=== PATIENT | male | born 1955 | race Caucasian/White ===

== ENCOUNTER 2023-02-09 21:30 | Inpatient (IN) | payer MEDICARE ==
[~2023-02-09] VITALS: Ht 177.8 cm; Wt 63.5 kg
[2023-02-09 21:39] VITALS: BP 105/73; TEMP 98.1; O2SAT 98
[2023-02-09] MEDS ORDERED: TRAMADOL HCL 50 MG TABLET PO PRN (21:45)
[2023-02-09] MEDS: ACETAMINOPHEN 325 MG TABLET PO PRN (22:32)
[2023-02-09] MEDS ORDERED: NICO-625 TD (22:57)
[2023-02-09] MEDS ORDERED: MAGN400O6 PO (22:57)
[2023-02-09] MEDS ORDERED: ALBU2.5V38 NEB (22:57)
[2023-02-09] MEDS ORDERED: FLUT1DIS28 INH (22:57)
[2023-02-09] MEDS ORDERED: ALBU8HFA4 (22:57)
[2023-02-09] MEDS ORDERED: PRED20TA PO (22:57)
[2023-02-09] MEDS ORDERED: ACET325C7 PO (22:57)
[2023-02-09] MEDS ORDERED: ENOX40DI SQ (22:57)
[2023-02-09] MEDS ORDERED: PANT40TA49 PO (22:57)
[2023-02-09] MEDS ORDERED: ONDA4TAB11 IVP (22:57)
[2023-02-09] MEDS ORDERED: LEVO500T90 PO (22:57)
[2023-02-09] MEDS ORDERED: MONT10TA22 PO (22:57)
[2023-02-09] MEDS ORDERED: DEXTROSE 50% 50 ML DISP.SYRIN IV PRN ×2 (23:00→23:30)
[2023-02-09] MEDS ORDERED: INSULIN REGULAR, HUMAN 300 UNIT/3 ML VIAL SQ PRN (23:00)
[2023-02-09] MEDS ORDERED: INSULIN REGULAR, HUMAN 300 UNITS/3 ML VIAL SQ PRN (23:00)
[2023-02-09] MEDS ORDERED: BLOOD SUGAR DIAGNOSTIC 1 EACH STRIP VI SCH (23:00)
[2023-02-09] MEDS ORDERED: IPRA0.2S48 NEB (23:04)
[2023-02-09] MEDS: BLOOD SUGAR DIAGNOSTIC 1 EACH STRIP VI SCH (23:30)
[2023-02-09] MEDS ORDERED: ALBUTEROL SULFATE 2.5 MG/3 ML NEBU NEB PRN (23:30)
[2023-02-10] VITALS (8 sets, daily range): BP systolic 106–121; BP diastolic 67–77; TEMP 97.7–98.3; O2SAT 93–99
[2023-02-10] MEDS: IPRATROPIUM BROMIDE 0.5 MG/2.5 ML NEBU NEB SCH ×2 (01:22→07:55)
[2023-02-10] MEDS ORDERED: ALBUTEROL SULFATE 2.5 MG/3 ML NEBU NEB PRN (06:00)
[2023-02-10] MEDS: BLOOD SUGAR DIAGNOSTIC 1 EACH STRIP VI SCH ×4 (06:08→21:29)
[2023-02-10] MEDS: NICOTINE 14 MG/24HR PATCH TD SCH (08:51)
[2023-02-10] MEDS: MONTELUKAST SODIUM 10 MG TABLET PO SCH (08:51)
[2023-02-10] MEDS: levoFLOXacin 500 MG TABLET PO SCH (08:51)
[2023-02-10] MEDS: FLUTICASONE/VILANTEROL 1 EACH BLST.W.DEV INH SCH (08:51)
[2023-02-10] MEDS: ENOXAPARIN SODIUM 40 MG/0.4 ML DISP.SYRIN SQ SCH (08:52)
[2023-02-10] MEDS ORDERED: LISI-782 PO (09:00)
[2023-02-10] MEDS ORDERED: SIMV-46 PO (09:00)
[2023-02-10] MEDS ORDERED: TAMS-3 PO (09:00)
[2023-02-10] MEDS ORDERED: METF-442 PO (09:00)
[2023-02-10] MEDS ORDERED: predniSONE 20 MG TABLET PO SCH (09:00)
[2023-02-10 09:50] LABS: BASOPHILS % (AUTO) 0.2 % (0.0-2.0); EOSINOPHILS # (AUTO) 0.1 K/uL (0.0-0.7); EOSINOPHILS % (AUTO) 0.8 % (0.0-7.0); HEMATOCRIT 46.1 % (36.7-47.1); HEMOGLOBIN 14.7 g/dL (12.5-16.3); LYMPHOCYTES # (AUTO) 1.4 K/uL (0.8-4.8); LYMPHOCYTES % (AUTO) 9.1 % (20.5-51.5); MEAN CORPUSCULAR HEMOGLOBIN 24.4 uug (23.8-33.4); MEAN CORPUSCULAR HGB CONC 32 g/dL (32.5-36.3); MEAN CORPUSCULAR VOLUME 76.7 fL (73.0-96.2); MONOCYTES # (AUTO) 1.6 K/uL (0.1-1.30); MONOCYTES % (AUTO) 10.3 % (0.0-11.0); NEUTROPHILS # (AUTO) 12.6 K/uL (1.8-8.9); NEUTROPHILS % (AUTO) 79.6 % (38.5-71.5); PLATELET COUNT (AUTO) 335 K/uL (152-348); RED BLOOD CELL COUNT(AUTO) 6.01 MIL/uL (4.06-5.63); RED CELL DISTRIBUTION WIDTH 18.3 % (12.1-16.2); WHITE BLOOD COUNT (AUTO) 15.8 K/uL (3.6-10.2)
[2023-02-10 09:55] LABS: DIFFERENTIAL COMMENT 1
[2023-02-10 10:09] LABS: ALBUMIN 3.3 g/dL (3.4-5.0); BILIRUBIN,TOTAL 0.5 mg/dL (0.2-1.0); CALCIUM 9.8 mg/dL (8.5-10.1); CREATININE 0.8 mg/dL (0.6-1.3); POTASSIUM 3.5 mmol/L (3.5-5.1); TOTAL PROTEIN, SERUM 7.5 g/dL (6.4-8.2)
[2023-02-10] MEDS ORDERED: IPRATROPIUM BROMIDE 0.5 MG/2.5 ML NEBU NEB PRN (11:01)
[2023-02-10] MEDS: predniSONE 20 MG TABLET PO SCH (12:18)
[2023-02-10] MEDS: INSULIN REGULAR, HUMAN 300 UNIT/3 ML VIAL SQ PRN (21:32)
[2023-02-11] VITALS (7 sets, daily range): BP systolic 100–132; BP diastolic 63–76; TEMP 97.6–98.5; O2SAT 96–100
[2023-02-11] MEDS: BLOOD SUGAR DIAGNOSTIC 1 EACH STRIP VI SCH ×4 (07:21→21:00)
[2023-02-11] MEDS: predniSONE 20 MG TABLET PO SCH (08:37)
[2023-02-11] MEDS: levoFLOXacin 500 MG TABLET PO SCH (08:39)
[2023-02-11] MEDS: NICOTINE 14 MG/24HR PATCH TD SCH (08:41)
[2023-02-11] MEDS: MONTELUKAST SODIUM 10 MG TABLET PO SCH (08:41)
[2023-02-11] MEDS: FLUTICASONE/VILANTEROL 1 EACH BLST.W.DEV INH SCH (08:42)
[2023-02-11] MEDS: ENOXAPARIN SODIUM 40 MG/0.4 ML DISP.SYRIN SQ SCH (08:43)
[2023-02-11] MEDS: INSULIN REGULAR, HUMAN 300 UNIT/3 ML VIAL SQ PRN (16:33)
[2023-02-12 05:14] VITALS: BP 113/72; TEMP 97.8; O2SAT 99
[2023-02-12 05:27] VITALS: O2SAT 98
[2023-02-12] MEDS: BLOOD SUGAR DIAGNOSTIC 1 EACH STRIP VI SCH ×4 (07:06→21:37)
[2023-02-12 07:47] VITALS: BP 125/74; TEMP 98.2; O2SAT 93
[2023-02-12] MEDS: predniSONE 20 MG TABLET PO SCH (09:31)
[2023-02-12] MEDS: FLUTICASONE/VILANTEROL 1 EACH BLST.W.DEV INH SCH (09:31)
[2023-02-12] MEDS: NICOTINE 14 MG/24HR PATCH TD SCH (09:31)
[2023-02-12] MEDS: MONTELUKAST SODIUM 10 MG TABLET PO SCH (09:31)
[2023-02-12] MEDS: levoFLOXacin 500 MG TABLET PO SCH (09:31)
[2023-02-12] MEDS: ENOXAPARIN SODIUM 40 MG/0.4 ML DISP.SYRIN SQ SCH (09:33)
[2023-02-12 12:00] VITALS: O2SAT 97
[2023-02-12 16:00] VITALS: BP 111/71; TEMP 98; O2SAT 95
[2023-02-12 19:46] VITALS: BP 99/58; TEMP 98.2; O2SAT 96
[2023-02-13 03:56] VITALS: BP 109/64; TEMP 97.8; O2SAT 100
[2023-02-13 04:23] VITALS: O2SAT 98
[2023-02-13] MEDS: BLOOD SUGAR DIAGNOSTIC 1 EACH STRIP VI SCH ×4 (07:00→20:52)
[2023-02-13 08:00] VITALS: BP 95/68; TEMP 97.8; O2SAT 93
[2023-02-13] MEDS: GLUCERNA SHAKE 237 ML CAN PO SCH (09:00)
[2023-02-13] MEDS: NICOTINE 14 MG/24HR PATCH TD SCH (10:11)
[2023-02-13] MEDS: predniSONE 20 MG TABLET PO SCH (10:12)
[2023-02-13] MEDS: levoFLOXacin 500 MG TABLET PO SCH (10:12)
[2023-02-13] MEDS: MONTELUKAST SODIUM 10 MG TABLET PO SCH (10:12)
[2023-02-13] MEDS: FLUTICASONE/VILANTEROL 1 EACH BLST.W.DEV INH SCH (10:13)
[2023-02-13] MEDS: ENOXAPARIN SODIUM 40 MG/0.4 ML DISP.SYRIN SQ SCH (10:13)
[2023-02-13 15:52] VITALS: BP 106/64; TEMP 98.6; O2SAT 98
[2023-02-13 20:00] VITALS: BP 97/63; TEMP 98.5; O2SAT 95
[2023-02-13 20:50] VITALS: O2SAT 97
[2023-02-13] MEDS: INSULIN REGULAR, HUMAN 300 UNIT/3 ML VIAL SQ PRN (20:58)
[2023-02-14 04:00] VITALS: BP 138/87; TEMP 98; O2SAT 96
[2023-02-14] MEDS: BLOOD SUGAR DIAGNOSTIC 1 EACH STRIP VI SCH ×4 (06:35→21:15)
[2023-02-14 07:54] VITALS: BP 115/77; TEMP 98.4; O2SAT 95
[2023-02-14] MEDS: levoFLOXacin 500 MG TABLET PO SCH (09:12)
[2023-02-14] MEDS: MONTELUKAST SODIUM 10 MG TABLET PO SCH (09:12)
[2023-02-14] MEDS: FLUTICASONE/VILANTEROL 1 EACH BLST.W.DEV INH SCH (09:12)
[2023-02-14] MEDS: predniSONE 20 MG TABLET PO SCH (09:12)
[2023-02-14] MEDS: NICOTINE 14 MG/24HR PATCH TD SCH (09:18)
[2023-02-14] MEDS: GLUCERNA SHAKE 237 ML CAN PO SCH (09:18)
[2023-02-14] MEDS: ENOXAPARIN SODIUM 40 MG/0.4 ML DISP.SYRIN SQ SCH (09:18)
[2023-02-14] MEDS: INSULIN REGULAR, HUMAN 300 UNIT/3 ML VIAL SQ PRN ×3 (11:54→21:18)
[2023-02-14 15:12] VITALS: BP 119/59; TEMP 98.4; O2SAT 100
[2023-02-14 15:55] VITALS: O2SAT 99
[2023-02-14 20:00] VITALS: BP 137/78; TEMP 98.1; O2SAT 97
[2023-02-14] MEDS: TERAZOSIN 5 MG CAPSULE PO SCH (21:07)
[2023-02-15 04:00] VITALS: BP 104/59; TEMP 98; O2SAT 95
[2023-02-15] MEDS: BLOOD SUGAR DIAGNOSTIC 1 EACH STRIP VI SCH ×4 (07:30→20:30)
[2023-02-15 07:56] VITALS: BP 103/73; TEMP 97.7; O2SAT 92
[2023-02-15] MEDS: predniSONE 20 MG TABLET PO SCH (08:56)
[2023-02-15] MEDS: MONTELUKAST SODIUM 10 MG TABLET PO SCH (08:56)
[2023-02-15] MEDS: FLUTICASONE/VILANTEROL 1 EACH BLST.W.DEV INH SCH (08:56)
[2023-02-15] MEDS: NICOTINE 14 MG/24HR PATCH TD SCH (08:56)
[2023-02-15] MEDS: GLUCERNA SHAKE 237 ML CAN PO SCH (08:57)
[2023-02-15] MEDS: ENOXAPARIN SODIUM 40 MG/0.4 ML DISP.SYRIN SQ SCH (08:59)
[2023-02-15] MEDS: INSULIN REGULAR, HUMAN 300 UNIT/3 ML VIAL SQ PRN ×4 (09:04→20:23)
[2023-02-15 15:18] VITALS: BP 108/68; TEMP 97.6; O2SAT 97
[2023-02-15 16:13] VITALS: O2SAT 97
[2023-02-15 20:00] VITALS: BP 155/76; TEMP 98; O2SAT 96
[2023-02-15] MEDS: TERAZOSIN 5 MG CAPSULE PO SCH (20:21)
[2023-02-16 02:52] VITALS: O2SAT 98
[2023-02-16 04:00] VITALS: BP 120/67; TEMP 98; O2SAT 96
[2023-02-16] MEDS: BLOOD SUGAR DIAGNOSTIC 1 EACH STRIP VI SCH ×4 (06:49→20:59)
[2023-02-16] MEDS: INSULIN REGULAR, HUMAN 300 UNIT/3 ML VIAL SQ PRN ×3 (07:57→16:56)
[2023-02-16 08:01] VITALS: BP 110/66; TEMP 98.3; O2SAT 97
[2023-02-16] MEDS: MONTELUKAST SODIUM 10 MG TABLET PO SCH (08:47)
[2023-02-16] MEDS: FLUTICASONE/VILANTEROL 1 EACH BLST.W.DEV INH SCH (08:47)
[2023-02-16] MEDS: GLUCERNA SHAKE 237 ML CAN PO SCH (08:47)
[2023-02-16] MEDS: predniSONE 10 MG TABLET PO SCH (08:47)
[2023-02-16] MEDS: NICOTINE 14 MG/24HR PATCH TD SCH (08:48)
[2023-02-16] MEDS: ENOXAPARIN SODIUM 40 MG/0.4 ML DISP.SYRIN SQ SCH (08:49)
[2023-02-16 16:01] VITALS: BP 109/64; TEMP 98.4; O2SAT 96
[2023-02-16 20:00] VITALS: BP 110/71; TEMP 98.6; O2SAT 96
[2023-02-16 20:57] VITALS: O2SAT 96
[2023-02-16] MEDS: TERAZOSIN 5 MG CAPSULE PO SCH (20:58)
[2023-02-17] MEDS: ACETAMINOPHEN 325 MG TABLET PO PRN (01:02)
[2023-02-17 04:00] VITALS: BP 114/73; TEMP 97.6; O2SAT 95
[2023-02-17] MEDS: BLOOD SUGAR DIAGNOSTIC 1 EACH STRIP VI SCH ×2 (06:33→11:38)
[2023-02-17 07:49] VITALS: BP 120/66; TEMP 98; O2SAT 97
[2023-02-17] MEDS: predniSONE 10 MG TABLET PO SCH (08:53)
[2023-02-17] MEDS: MONTELUKAST SODIUM 10 MG TABLET PO SCH (08:53)
[2023-02-17] MEDS: NICOTINE 14 MG/24HR PATCH TD SCH (08:54)
[2023-02-17] MEDS: FLUTICASONE/VILANTEROL 1 EACH BLST.W.DEV INH SCH (08:54)
[2023-02-17] MEDS: GLUCERNA SHAKE 237 ML CAN PO SCH (08:55)
[2023-02-17] MEDS: ENOXAPARIN SODIUM 40 MG/0.4 ML DISP.SYRIN SQ SCH (08:55)
[2023-02-17 10:11] LABS: *BILIRUBIN,URIN NEGATIVE (NEGATIVE); *BLOOD, URINE NEGATIVE (NEGATIVE); *CLARITY,URINE CLEAR (CLEAR); *COLOR,URINE YELLOW (YELLOW); *KETONES,URINE NEGATIVE (NEGATIVE); *PROTEIN,URINE NEGATIVE (NEGATIVE); *UROBILINOGEN,URINE 0.2 E.U./dl (NORMAL); LEUKOCYTE ESTERASE ,URINE 1+ (NEGATIVE); NITRITE, URINE NEGATIVE (NEGATIVE); UGLUCOSE NEGATIVE (NEGATIVE)
[2023-02-17 11:07] LABS: BACTERIA,URINE FEW /HPF (NONE SEEN); RBC,URINE 0-3 /HPF (0-3); SQUAMOUS EPITHELIAL CELL,UR FEW /HPF (NONE SEEN)
== END 2023-02-17 15:40 | disposition home health service (06) | DRG 189 ==
PROVIDERS: ADMIT Physical Medicine & Rehabilitation Pain Medicine; ATTEND Physical Medicine & Rehabilitation Pain Medicine
DX: J96.01 Acute respiratory failure with hypoxia (principal); G92.8 Other toxic encephalopathy; J44.1 Chronic obstructive pulmonary disease with (acute) exacerbation; M62.82 Rhabdomyolysis; J96.02 Acute respiratory failure with hypercapnia; E11.9 Type 2 diabetes mellitus without complications; D50.9 Iron deficiency anemia, unspecified; R79.89 Other specified abnormal findings of blood chemistry; Z87.891 Personal history of nicotine dependence; N40.0 Benign prostatic hyperplasia without lower urinary tract symptoms
CPT/HCPCS: 36415; 85025; 94640; 97535-GO-CO; A4663; A6213; J1650; J1815; J3590; J7512